=== PATIENT | female | born 1950 | race Caucasian/White ===

== ENCOUNTER 2016-07-23 13:32 | Emergency (ER) | payer BC ==
[~2016-07-23] VITALS: Wt 70.0 kg
[~2016-07-23 13:32] MED LIST: ASPI325T4 PO; HTN MED DAILY; PANT40TA4 PO
--- NOTE | 2016-07-23 17:42 | ERD ---
ER Documentation Chief Complaint Date/Time DATE: 07/23/16 TIME: 17:38 Chief Complaint DIZZY AND FELL TODAY; R HAND PAIN HPI Patient is a 65-year-old female who presents with ground-level fall that she attributes to feeling dizzy. Patient states that she has felt dizzy for the last 2 days, cannot describe what dizziness means, but denies vertigo. Denies focal weakness. Acknowledges extreme anxiety, and is concerned about her hypertension being uncontrolled. Patient states that she has pain in her right hip and knee since her fall. Denies chest pain, shortness of breath, suicidal ideations. Denies head trauma, denies back pain, denies acute injury to upper extremities. ROS All systems reviewed and are negative except as per history of present illness. Medications Home Meds Reported Medications Estrogen,Con/M-Progest Acet (Prempro 0.45-1.5 mg Tablet) 1 Each Tablet, 1 EACH PO DAILY, TAB 07/23/16 Trazodone Hcl* (Trazodone Hcl*) 100 Mg Tablet, 300 MG PO DAILY, #90 TAB 07/23/16 Meloxicam* (Mobic*) 15 Mg Tablet, 15 MG PO DAILY, #30 TAB 07/23/16 Metformin* (Glucophage*) 500 Mg Tab, 500 MG PO WITH LUNCH DINNER, #60 TAB 07/23/16 Carvedilol* (Carvedilol*) 3.125 Mg Tablet, 3.125 MG PO BID, #60 TAB 07/23/16 Omeprazole* (Omeprazole*) 20 Mg Capsule.dr, 40 MG PO DAILY, #30 CAP 07/23/16 Losartan Potassium* (Losartan Potassium*) 50 Mg Tablet, 50 MG PO DAILY, TAB 07/23/16 Estradiol* (Estrace*) 1 Mg Tablet, 1 MG PO DAILY, TAB 07/23/16 Discontinued Reported Medications Pantoprazole* (Pantoprazole*) 40 Mg Tablet.dr, 40 MG PO DAILY, TAB 03/01/15 Aspirin* (Aspirin*) 325 Mg Tablet, 325 MG PO DAILY, TAB 03/01/15 [htn med. daily] No Conflict Check 03/01/15 Allergies Allergies: Coded Allergies: No Known Drug Allergies (Verified Allergy, Unknown, 03/01/15) PMhx/Soc Past medical history: Hypertension, depression, anxiety Past surgical history: Denies Social history: Denies alcohol or tobacco History of Surgery: Yes (STENT PLACEMENT) Anesthesia Reaction: No Hx Neurological Disorder: No Hx Respiratory Disorders: No Hx Cardiac Disorders: Yes (CAD) Hx Psychiatric Problems: Yes (DEPRESSION) Hx Miscellaneous Medical Probl: Yes (HTN, HIGH CHOLESTEROL) Hx Alcohol Use: No Hx Substance Use: No Hx Tobacco Use: No FmHx Family History: No diabetes Physical Exam Vitals Vital Signs Date Time Temp Pulse Resp B/P Pulse Ox O2 Delivery O2 Flow Rate FiO2 07/23/16 13:37 98.0 82 18 199/101 99 Physical Exam Const: Anxious, teary-eyed Head: Atraumatic Eyes: Normal Conjunctiva ENT: Normal External Ears, Nose and Mouth. Neck: Full range of motion..~ No meningismus. NEXUS negative Resp: Clear to auscultation bilaterally Cardio: Regular rate and rhythm, no murmurs Abd: Soft, non tender, non distended. Normal bowel sounds Skin: No petechiae or rashes Back: No midline or flank tenderness Ext: No cyanosis, or edema, inconsistent pain with ranging of right hip and palpation of right knee, no ligamentous laxity, no limb shortening, 2+ pulses in 4 extremities, no deformity. Normal gait Neur: Awake and alert, cranial nerves II through XII intact bilaterally, no nystagmus, strength and sensation intact throughout 4 extremities Psych: Anxious, agitated, perseverating on week time Result Diagram: 07/23/16 1800 07/23/16 1800 Results 24 hrs Laboratory Tests Test 07/23/16 18:00 07/23/16 20:05 Anion Gap 22 Basophils # 0.110^3/ul Basophils % 0.4% Blood Urea Nitrogen 12mg/dl Calcium Level 10.2mg/dl Carbon Dioxide Level 21mmol/L Chloride Level 101mmol/L Creatinine 0.81mg/dl Eosinophils # 0.110^3/ul Eosinophils % 1.2% Glucose Level 106mg/dl Hematocrit 42.2% Hemoglobin 14.3g/dl Lymphocytes # 3.510^3/ul Lymphocytes % 30.0% Mean Corpuscular Hemoglobin 30.6pg Mean Corpuscular Hemoglobin Concent 33.9g/dl Mean Corpuscular Volume 90.2fl Mean Platelet Volume 9.8fl Monocytes # 1.010^3/ul Monocytes % 8.6% Neutrophils # 7.010^3/ul Neutrophils % 59.5% Nucleated Red Blood Cells # 0.010^3/ul Nucleated Red Blood Cells % 0.0/100WBC Platelet Count 32337^3/UL Potassium Level 3.7mmol/L Red Blood Count 4.6810^6/ul Red Cell Distribution Width 11.9% Sodium Level 140mmol/L White Blood Count 11.810^3/ul Urine Bilirubin NEGATIVE Urine Clarity CLEAR Urine Color LT. YELLOW Urine Glucose NEGATIVE% Urine Hemoglobin 2+ Urine Ketones TRACE Urine Leukocyte Esterase NEGATIVE Urine Microscopic RBC 2-5/HPF Urine Microscopic WBC NONE SEEN/HPF Urine Nitrite NEGATIVE Urine Specific [place] 1.010 Urine Squamous Epithelial Cells RARE Urine Total Protein NEGATIVE Urine Urobilinogen 0.2 E.U./dL Urine pH 8.0 Current Medications Medications (Trade) Dose Ordered Sig/Ella Route PRN Reason Start Time Stop Time Status Last Admin Dose Admin Lorazepam (Ativan) 1 mg ONCE ONCE IV 07/23/16 18:00 07/23/16 18:01 DC 07/23/16 17:54 Procedures/MDM EKG: Time 1350, rate 78, normal sinus rhythm, normal axis and intervals, no ischemic ST T-wave changes, no ectopy. Chest x-ray: No acute disease, see EMR for full report Right knee x-ray: Degenerative disease, see EMR for full report. Right hip x-ray: No acute fracture, see EMR for full report. MDM: Patient reports dizziness, poorly described, associated with ground-level fall. Patient denies loss of consciousness, denies head trauma. Patient complains of severe anxiety as well as pain throughout her entire body. On exam pains and further history, pain appears to be localized primarily in right lower extremity. X-rays did not demonstrate injury. EKG and labs are unremarkable with regards to the cause of the patient's dizziness. After receiving Ativan and IV fluids, on reassessment the patient's dizziness is completely resolved. Patient is able to ambulate with a steady gait. She complains of a mild headache that was gradual in onset and not present on arrival. Given Tylenol for headache. Advise follow-up with PMD in 1-2 days per Departure Diagnosis: Primary Impression: Accident due to mechanical fall without injury Additional Impressions: Anxiety Dizziness Condition: BIENVENIDO Mosley Jul 23, 2016 17:42
[2016-07-23] MEDS ORDERED: LORAZEPAM 2 MG INJ IV ONE (18:00)
[2016-07-23 18:18] LABS: ADD SCAN DIFF NO
[2016-07-23 18:21] LABS: BASOPHIL # 0.1 10^3/ul (0.0-0.1); BASOPHILS % 0.4 % (0.0-2.0); EOSINOPHILS # 0.1 10^3/ul (0.0-0.5); EOSINOPHILS % 1.2 % (0.0-7.0); HEMATOCRIT 42.2 % (37.0-47.0); HEMOGLOBIN 14.3 g/dl (12.0-16.0); LYMPHOCYTES # 3.5 10^3/ul (0.8-2.9); MEAN CORPUSCULAR HEMOGLOBIN 30.6 pg (29.0-33.0); MEAN CORPUSCULAR HGB CONC 33.9 g/dl (32.0-37.0); MEAN CORPUSCULAR VOLUME 90.2 fl (82.0-101.0); MEAN PLATELET VOLUME 9.8 fl (7.4-10.4); MONOCYTES % 8.6 % (0.0-11.0); NEUTROPHILS % 59.5 % (39.0-77.0); PLATELET COUNT 303 10^3/UL (140-415); RED BLOOD COUNT 4.68 10^6/ul (4.20-5.40); RED CELL DISTRIBUTION WIDTH 11.9 % (11.5-14.5); WHITE BLOOD COUNT 11.8 10^3/ul (4.8-10.8)
[2016-07-23 18:37] LABS: POTASSIUM 3.7 mmol/L (3.5-5.1)
[2016-07-23 18:39] LABS: CREATININE 0.81 mg/dl (0.44-1.00)
[2016-07-23 18:40] LABS: CALCIUM 10.2 mg/dl (8.4-10.2)
[2016-07-23] MEDS ORDERED: ESTR1TAB23 PO (18:45)
[2016-07-23] MEDS ORDERED: OMEP20CA16 PO (18:46)
[2016-07-23] MEDS ORDERED: LOSA50TA6 PO (18:46)
[2016-07-23] MEDS ORDERED: METF500T4 PO (18:47)
[2016-07-23] MEDS ORDERED: MELO-110 PO (18:47)
[2016-07-23] MEDS ORDERED: CARV3.1260 PO (18:47)
[2016-07-23] MEDS ORDERED: TRAZ100T15 PO (18:48)
[2016-07-23] MEDS ORDERED: ESTR1TAB14 PO (18:50)
--- NOTE | 2016-07-23 19:17 | RADRPT ---
PROCEDURE: XR right knee. CLINICAL INDICATION: Knee pain TECHNIQUE: AP, PA and lateral views are available for review. COMPARISON: None available FINDINGS: There is mild to moderate osteoarthrosis involving the patellofemoral compartment. This is associate d with joint space narrowing, subchondral sclerosis and osteophytosis. There is otherwise normal mineralization, architecture and alignment. No fractures are identified. No osseous lesions are identified. The soft tissues are unremarkable. IMPRESSION: Mild to moderate osteoarthrosis involving the patellofemoral compartment. RPTAT: HGDB .Jag Silva MD, MD Date Time Electronically viewed and signed by .Jag Silva MD, on 07/23/2016 19:17 .B/
--- NOTE | 2016-07-23 19:18 | RADRPT ---
PROCEDURE: XR Chest. CLINICAL INDICATION: Chest pain TECHNIQUE: Chest AP portable COMPARISON: None available FINDINGS: The mediastinal structures are unremarkable. There is calcification of the thoracic aorta (consiste nt with atherosclerosis). The heart is normal in size and configuration. The pulmonary vascularity is normal. The lung aldrich are unremarkable. No consolidation is identified. The pleural spaces are unremarkable. The osseous structures are unremarkable. IMPRESSION: Calcification of the thoracic aorta (consistent with atherosclerosis). No evidence for active cardiopulmonary disease. RPTAT: HGDB .Jag Silva MD, Date Time Electronically viewed and signed by .Jag Silva MD, on 07/23/2016 19:18 .B/
--- NOTE | 2016-07-23 19:18 | RADRPT ---
PROCEDURE: XR right hip. CLINICAL INDICATION: Hip pain TECHNIQUE: Two views available for review. COMPARISON: None available FINDINGS: The osseous structures are normal in mineralization, architecture and alignment. No fractures are i dentified. No osseous lesions are identified. The joints are unremarkable. The soft tissues are u nremarkable. IMPRESSION: Unremarkable examination RPTAT: HGDB .Jag Silva MD, MD Date Time Electronically viewed and signed by .Jag Silva MD, on 07/23/2016 19:17 .B/
[2016-07-23 20:27] LABS: ADD UMIC YES; URINE BILIRUBIN (Dip) NEGATIVE (NEGATIVE); URINE BLOOD (Dip) 2+ (NEGATIVE); URINE COLOR LT. YELLOW (YELLOW); URINE GLUCOSE (Dip) NEGATIVE (NEGATIVE); URINE KETONES (Dip) TRACE (NEGATIVE); URINE LEUKOCYTE ESTERASE (Dip) NEGATIVE (NEGATIVE); URINE NITRITE (Dip) NEGATIVE (NEGATIVE); URINE TOTAL PROTEIN (Dip) NEGATIVE (NEGATIVE); URINE UROBILINOGEN (Dip) 0.2 E.U./dL (0.1-1.0)
[2016-07-23 20:53] LABS: SQUAMOUS EPITHELIAL CELL,UR RARE
[2016-07-23 21:08] VITALS: BP 154/87; PULSE 98; RESP 17
== END 2016-07-23 21:08 | disposition home or self-care (01) ==
LOC: E/R 13:32
DX: F41.9 Anxiety disorder, unspecified (principal); R40.2252 Coma scale, best verbal response, oriented, at arrival to emergency department; I10 Essential (primary) hypertension; I25.10 Atherosclerotic heart disease of native coronary artery without angina pectoris; R40.2142 Coma scale, eyes open, spontaneous, at arrival to emergency department; R40.2362 Coma scale, best motor response, obeys commands, at arrival to emergency department; W18.39XA Other fall on same level, initial encounter; Y92.9 Unspecified place or not applicable; Z79.84 Long term (current) use of oral hypoglycemic drugs; Z79.82 Long term (current) use of aspirin; Z98.61 Coronary angioplasty status
CPT/HCPCS: 36415; 71010; 73510; 73562; 80048; 81001; 85025; 93005; 96374; J2060; Z7502; 81003

== ENCOUNTER 2016-08-16 06:51 | Day surgery (SDC) | payer BC ==
[2016-08-16] VITALS (12 sets, daily range): BP systolic 134–168; BP diastolic 80–89; PULSE 68–80; RESP 14–19; Ht 162.6 cm; Wt 65.9 kg
[~2016-08-16] VITALS: Ht 162.6 cm; Wt 65.9 kg
[~2016-08-16 06:51] MED LIST changes: -ASPI325T4 PO; +CARV3.1260 PO; +CEFAZOLIN 2 GM/50 ML (PMX) 50 ML IVPB SCH; +ESTR1TAB14 PO; +ESTR1TAB23 PO; -HTN MED DAILY; +LOSA50TA6 PO; +MELO-110 PO; +METF500T4 PO; +OMEP20CA16 PO; -PANT40TA4 PO; +SOD CHLORIDE 0.9% 1,000 ML IV SCH; +TRAZ100T15 PO
[2016-08-16] MEDS ORDERED: NALOXONE (0.4 MG/ML) INJ ONE ×2 (07:00→11:23)
[2016-08-16] MEDS ORDERED: ASPI-664 PO (07:31)
[2016-08-16] MEDS ORDERED: SERT-165 PO (07:31)
--- NOTE | 2016-08-16 08:37 | RADRPT ---
PROCEDURE: XR Chest. CLINICAL INDICATION: pre op TECHNIQUE: Single frontal view of the chest was obtained. COMPARISON: Chest x-ray from 07/23/2016 FINDINGS: The heart and mediastinum are within normal limits. The lungs are clear. There is improved aeration bilaterally. The aortic arch is calcified. There is no significant pleural effusion or pneumothorax. There are mild degenerative changes in the thoracic spine including small anterior osteophytes IMPRESSION: No acute disease. Improved aeration. RPTAT: EE Physician Vern Date Time Electronically viewed and signed by Parker Zhou Physician on 08/16/2016 08:37 /
[2016-08-16 08:42] LABS: ADD SCAN DIFF NO
[2016-08-16 08:47] LABS: BASOPHILS % 0.4 % (0.0-2.0); EOSINOPHILS # 0.3 10^3/ul (0.0-0.5); EOSINOPHILS % 3.3 % (0.0-7.0); HEMATOCRIT 36.8 % (37.0-47.0); HEMOGLOBIN 11.9 g/dl (12.0-16.0); LYMPHOCYTES # 2.8 10^3/ul (0.8-2.9); LYMPHOCYTES % 31.3 % (15.0-51.0); MEAN CORPUSCULAR HEMOGLOBIN 30.7 pg (29.0-33.0); MEAN CORPUSCULAR HGB CONC 32.3 g/dl (32.0-37.0); MEAN CORPUSCULAR VOLUME 95.1 fl (82.0-101.0); MEAN PLATELET VOLUME 9.9 fl (7.4-10.4); MONOCYTE # 0.9 10^3/ul (0.3-0.9); MONOCYTES % 10.4 % (0.0-11.0); NEUTROPHIL # 4.8 10^3/ul (1.6-7.5); NEUTROPHILS % 54.3 % (39.0-77.0); PLATELET COUNT 251 10^3/UL (140-415); RED BLOOD COUNT 3.87 10^6/ul (4.20-5.40); RED CELL DISTRIBUTION WIDTH 12.7 % (11.5-14.5); WHITE BLOOD COUNT 8.9 10^3/ul (4.8-10.8)
[2016-08-16 08:57] LABS: INR 0.94; PROTIME 12.6 Sec (12.2-14.2)
[2016-08-16 09:03] LABS: CALCIUM 9.4 mg/dl (8.4-10.2); CREATININE 0.82 mg/dl (0.44-1.00); POTASSIUM 3.9 mmol/L (3.5-5.1)
[2016-08-16] MEDS ORDERED: ROCURONIUM 50 MG INJ ONE (10:32)
[2016-08-16] MEDS ORDERED: PROPOFOL 20 ML ONE (10:32)
[2016-08-16] MEDS ORDERED: MIDAZOLAM 1 MG/ML 2 ML INJ ONE (10:32)
[2016-08-16] MEDS ORDERED: PHENYLephrine (100 MCG/ML) 5ML SYG ONE (10:55)
[2016-08-16] MEDS ORDERED: BUPIVACAINE 0.5%/EPI (SDV) 30 ML INJ ONE (10:56)
[2016-08-16] MEDS ORDERED: CEFAZOLIN 1 GM INJ ONE (10:59)
[2016-08-16] MEDS ORDERED: ONDANSETRON 4 MG INJ ONE (11:05)
[2016-08-16] MEDS ORDERED: NEOSTIGMINE 3 MG/3 ML SYRINGE ONE (11:21)
[2016-08-16] MEDS ORDERED: GLYCOPYRROLATE 0.4 MG INJ ONE (11:21)
--- NOTE | 2016-08-16 12:03 | OPR ---
DATE OF OPERATION: 08/16/2016 PREOPERATIVE DIAGNOSIS: Symptomatic hemorrhoids. POSTOPERATIVE DIAGNOSIS: Symptomatic hemorrhoids. OPERATION PERFORMED: Anal exam under anesthesia and hemorrhoidectomy x2. ANESTHESIOLOGIST: Dr. Ochoa SURGEON: Daniel Morris MD RATE ANALYST: Dr. Zavala INDICATIONS FOR PROCEDURE: The patient is a 65-year-old female who presented with symptomatic hemor rhoids. She was counseled as to the risks versus benefits of anal exam under anesthesia and hemorrh oidectomy. She consented and was scheduled for surgery. DESCRIPTION OF PROCEDURE: The patient was brought to the operating theater and placed under general endotracheal tube anesthesia. She was then placed into the prone jackknife position. The buttocks were widely shaved, taped, prepped and draped in the usual sterile fashion. Initial inspection of the perianal region revealed obvious external hemorrhoids. Digital exam did not reveal evidence of mass. The anal retractors were inserted. Associated with the external hemorrhoids was a component of internal hemorrhoids. The first one was in the right anterior location. It was grasped with a h emorrhoid clamp and meticulously resected using the LigaSure device. It was then sent for permanent pathologic analysis. A second obvious hemorrhoid was located in the left lateral position. It als o was grasped with a hemorrhoid clamp, elevated and transected using the LigaSure device. This spec imen was also sent for permanent pathologic analysis. The wound was irrigated. Minimal bleeding wa s controlled with cautery and the area was then infiltrated with 0.5% Marcaine local anesthetic with epinephrine, and this concluded the procedure. The patient tolerated the procedure well. Estimate d blood loss was 10 mL. There were no complications and the patient was transported in stable condi tion to the recovery room. Dictated By: DANIEL LAZARO/HE Conf#: [id number] DID#: [id number]
[2016-08-16] MEDS ORDERED: KETOROLAC 30 MG INJ IV ONE (12:30)
--- NOTE | 2016-08-16 14:04 | RADRPT ---
Vent Rate: 63 bpm RR Interval: 0 msec [place] Interval: 136 msec QRS Duration: 72 msec QT Interval: 448 msec QTC Interval: 458 msec P-R-T [place]: 63 - 45 - 61 degrees Normal sinus rhythm Low voltage QRS Borderline ECG Electronically Signed By: Ricco Bui [id number]
== END 2016-08-16 13:48 | disposition home or self-care (01) ==
LOC: SDS 06:51
PROVIDERS: ATTEND Surgery Surgical Oncology
DX: K64.4 Residual hemorrhoidal skin tags (principal); I10 Essential (primary) hypertension; E11.9 Type 2 diabetes mellitus without complications; E78.00 Pure hypercholesterolemia, unspecified
CPT/HCPCS: 46250; 71010; 80048; 82962; 85025; 85610; 85730; 88304; 93005; J0690; J2250; J2310; J2405; J2710; J3010; Z7512; Z7610; J2370